=== PATIENT | male | born 1975 | race Caucasian/White ===

== ENCOUNTER 2024-01-24 05:51 | Day surgery (SDC) | payer BC ==
[2024-01-24] MEDS ORDERED: Sodium Chloride 0.9% 500 ML 500 ML IV ONE (06:07)
[2024-01-24 06:21] VITALS: RESP 16
--- NOTE | 2024-01-24 06:29 | XRAY ---
CLINICAL HISTORY: pre op-cardiomyopathy COMPARISON: None. TECHNIQUE: Xray of the chest was performed in AP portable view. FINDINGS: The suggestion of a small nodular density in the periphery of the left mid-lung zone. No consolidation. Normal configuration of the mediastinum. The faina are normal in size and position. The cardiac size is normal. The bony thorax is unremarkable. The costophrenic and cardiophrenic angles are clear. IMPRESSION: No consolidation or pleural effusion. Suggestion of a small nodular density in the periphery of the left mid-lung zone. If indicated CT chest may be helpful for further evaluation. Electronically Signed by: Audrey Hwang MD. (01/24/2024 06:24:33 EDT)
[2024-01-24] MEDS: Sodium Chloride 0.9% 500 ML 500 ML IV SCH (06:38)
[2024-01-24 06:47] LABS: ALBUMIN 4.4 g/dL (3.5-5.0); ANION GAP 15.1 MEQ/L (5-15); BILIRUBIN,TOTAL 1.2 mg/dL (0.2-1.3); Calcium 9.3 mg/dL (8.4-10.2); Creatinine 1 3.03 mg/dL (0.66-1.25); EST GLOMERULAR FILTRATION RATE 24.6 ML/MIN; Potassium 3.8 mmol/L (3.5-5.1); Total Protein 7.2 g/dL (6.3-8.2)
[2024-01-24] MEDS ORDERED: Versed 2 MG/2 ML Injection ONE (07:27)
[2024-01-24] MEDS ORDERED: DIPRIVAN 200 MG/20 ML IV ONE (07:27)
[2024-01-24 08:25] VITALS: BP 135/83; PULSE 69; TEMP 98.3; O2SAT 94
--- NOTE | 2024-01-25 11:33 | OP ---
SURGERY DATE/TIME: 01/24/2024 [id number] PREOPERATIVE DIAGNOSIS: Screening exam. POSTOPERATIVE DIAGNOSIS: Mild diverticulitis, otherwise normal colon. PROCEDURE: Colonoscopy. SURGEON: Akira Kuhn MD. ANESTHESIA: Medications given by the anesthesia department. INDICATIONS: The patient is a 48-year-old white male presenting now for screening colonoscopy. He was apprised of the risks of the procedure including risk of perforation, phlebitis, untoward reaction to medication, bleeding and missed lesions. The patient verbalized understanding and desired to have the procedure performed. DESCRIPTION OF PROCEDURE: The patient was given medication by the anesthesia department. He had continuous pulse oximetry, ECG monitoring, and intermittent blood pressure monitoring during the examination. He was placed in the left lateral decubitus position. Digital rectal examination was performed and revealed normal anal sphincter tone, no masses, and a normal prostate. The flexible Olympus videocolonoscope was used to intubate the rectum. A view of the colon was developed sequentially to the cecum. Upon insertion and withdrawal, including retroflexion in the rectum, it was noted diffuse scattered diverticula; otherwise, no mucosal lesions were encountered. The scope was removed. The patient tolerated the procedure well and was sent back to outpatient recovery in good condition. The prep was noted to be fair to good.
== END 2024-01-24 08:36 | disposition home or self-care (01) ==
LOC: SDC 05:51
PROVIDERS: ATTEND Family Medicine
DX: Z12.11 Encounter for screening for malignant neoplasm of colon (principal); K57.92 Diverticulitis of intestine, part unspecified, without perforation or abscess without bleeding
CPT/HCPCS: 36415; 71045; 80053; 93005; J2250; J2704